=== PATIENT | male | born 1990 | race Caucasian/White ===

== ENCOUNTER 2025-05-08 16:52 | Emergency (ER) | payer SELFPAY ==
[2025-05-08 16:58] VITALS: BP 146/101; PULSE 77; RESP 17; TEMP 36.8; O2SAT 98; BMI 27.0
--- NOTE | 2025-05-08 17:53 | ED_ITS ---
<Statement entered by Kwadow Justice MD - 05/08/25 18:53> I was consulted by the ADRIANA, and we discussed the complexity of the problems being addressed. I approve the treatment and management plan for this patient's care in the emergency department, thus performing a substantive portion of the medical decision making. Kwadwo Justice MD Discharge Plan Disposition Patient Disposition: Home, Self-Care Prescriptions Prescriptions: New sulfamethoxazole-trimethoprim [Bactrim DS] 800-160 mg tablet 1 tab PO BID 10 Days Qty: 20 0RF Referrals Follow up/Referrals: Provider,Referral, [Primary Care Provider, Medical] - See instructions Activity Restrictions/Add. Instructions Additional Instructions/Restrictions: Keep area clean and covered. Take antibiotics as directed. Return to ED if any fevers occur Clinical Impressions Clinical Impression: Abscess Instructions Patient Instructions: DI for Skin Abscess Print Language Print Language: [place] Discharge ED Provider: Kwadwo Justice General Adult HPI General Chief complaint: Skin/Abscess/Foreign Body Stated complaint: sore area on left side waist line Time Seen by Provider: 05/08/25 17:48 Mode of Arrival: Family Vehicle Source of Information: Patient and Medical Record Description of Symptoms (Recalled from ER Triage Doc. by RN): Pt c/o sore that he feels was an ingrown hair folicle that has worsened to might need to be lanced . Denies any fever, chills, or body aches. He attempted to use a home remedy of duck taped a black tea bag over the area today and reports it seemed to help. History of Present Illness HPI narrative: 34-year-old male presents to the ED today with complaints of a infected in his left inguinal area. Denies fevers, chills, body aches. Does complain of other symptoms noticed Related Data Previous Rx's ?Medication ?Instructions ?Recorded sulfamethoxazole 800 1 tab PO BID 10 days #20 tab s 05/08/25 mg-trimethoprim 160 mg tablet (Bactrim DS) Allergies Allergy/AdvReac Type Severity Reaction Status Date / Time No Known Allergies Allergy Verified 05/08/25 17:07 [facility] Disclaimer: The information contained in this section may have been updated after the patient was seen, as this information can be updated by other users. Medical History (Updated 05/08/25 @ 18:16 by Agata Germain (ED), [employer]URAL WORK[employer]) Hydrocele Surgical History (Updated 05/08/25 @ 17:09 by Karol Masters RN) History of hydrocelectomy Social History Smoking Status: Current every day smoker alcohol intake: former current occupational status: other Travel in the last 8 weeks?: None ROS Obtained: Yes Systems reviewed as appropriate & no additional complaints except as documented Constitutional Constitutional: Reports as per HPI Physical Exam General General appearance: alert Head Head exam: normocephalic Eye Eye exam: Present PERRL and EOMI ENT ENT exam: Present normal oropharynx and mucous membranes moist Neck Neck exam: Present full ROM and trachea midline Respiratory Respiratory exam: Present normal lung sounds bilaterally Cardiovascular Cardiovascular exam: Present regular rate, normal rhythm, normal heart sounds, +S1 and +S2 Extremities Exam Extremities exam: Present full ROM and normal capillary refill Neurological Exam Neurological exam: Present alert and oriented X3 Skin Skin exam: Present warm, dry and erythema (Inguinal area small cyst, boil area) Medical Decision Making Medical Records Screening: Per USPSTF and CDC recommendations, given the prevalence of disease in our region, it is our hospital?s policy to screen for HIV and viral Hepatitis for all patients aged 18 and over and those with ongoing risk factors. [place] Inquiry Pt receiving controlled substance: No [place] was queried for this patient: No Vital Signs: 05/08/25 16:58 05/08/25 18:00 05/08/25 18:27 Temperature 98.2 F 98.2 F Temperature Source Oral Oral Pulse Rate 68 68 Pulse Rate [Right] 77 Respiratory Rate 17 16 Blood Pressure 137/88 137/88 Blood Pressure [Left Arm] 146/101 H Blood Pressure Mean [Left Arm] 116 Blood Pressure Source Automatic Cuff Blood Pressure Source [Left Arm] Automatic Cuff Blood Pressure Position Sitting 02 Sat by Pulse Oximetry 98 97 Oxygen Delivery Method Room Air Room Air Orders (Tests/Meds): ED MEDICATIONS Discontinued Medications Generic Name Dose Route Start Last Admin Trade Name Freq PRN Reason Stop Dose Admin Lidocaine/Epinephrine 20 ml 05/08/25 17:52 05/08/25 17:57 Lidocaine 1% W/Epi 1:100,000 20ml Vial SQ 05/08/25 17:53 20 ml ONCE ONE Administration ORDERS Category Date Time Status HIV Combo Stat Lab 05/08/25 18:03 Ordered Hepatitis C Ab Qual. W/ RFX Stat Lab 05/08/25 18:03 Ordered Wound Culture and Gram Stain Stat Micro 05/08/25 18:05 Received Medical Decision Narrative: patient is a 34-year-old male presenting to the emergency department for evaluation of abscess. Patient is hemodynamically stable and nontoxic-appearing upon arrival, afebrile. Differential diagnosis includes abscess. Workup will be conducted with hematologic labs, specific imaging. Did an I&D at bedside. Will place patient outpatient. Patient to return to ER if any symptoms worsen or do not improve. Procedures Miscellaneous Procedure Procedure Performed: I&d of small abscess oin left inguinal area. Used lidocaine with epi to anesthetize area and opened with an 11 blade used moderate amount of yellow fluid. Patient feels improved. Critical Care Critical Care Time Critical Care Time: No
[2025-05-08] MEDS: LIDOCAINE 1% W/EPI 1:100,000 20ML VIAL 20 ML SQ (17:57)
[2025-05-08 18:00] VITALS: BP 137/88; PULSE 68; O2SAT 97
--- NOTE | 2025-05-08 18:09 | PC.NURSE ---
wound culture sent to lab.
[2025-05-08 18:27] VITALS: BP 137/88; PULSE 68; RESP 16; TEMP 36.8; O2SAT 97
--- NOTE | 2025-05-09 02:00 | PC.NURSE ---
Discussed prelim wound cx results with Dr. Barreto. No change to treatment at this time.
--- NOTE | 2025-05-10 10:39 | PC.NURSE ---
pt calls in to request new abx as he does not want to take abx r/t possible side effects. pt has not taken bactrim that was ordered. pt report site has improved. discussed pt concern with dr. briggs. offered to call pt in doxy. warned pt that doxy will have side effects as well. pt remains concerned. instructed pt to follow-up with pcp with concerns and if he wants to take abx. pt v/u
== END 2025-05-08 18:29 | disposition home or self-care (01) ==
PROVIDERS: Emergency Provider Student in an Organized Health Care Education/Training Program
DX: L02.91 Cutaneous abscess, unspecified (principal)
CPT/HCPCS: 10061; 87070; 87077; 87186; 87205; 99282; 99284; J2004